=== PATIENT | female | born 2000 | race Two or more races ===

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

== ENCOUNTER 2020-06-12 17:48 | Emergency (ER) | payer MEDICAID ==
[2020-06-12 17:59] VITALS: BP 134/79; PULSE 97
--- NOTE | 2020-06-12 18:24 | EDM.PDOC ---
ED HPI GENERAL MEDICAL PROBLEM - General Chief Complaint: Gastrointestinal Problem Stated Complaint: CONSTIPATED Time Seen by Provider: 06/12/20 18:01 Source of Information: Reports: Patient, Old Records History Limitations: Reports: No Limitations - History of Present Illness INITIAL COMMENTS - FREE TEXT/NARRATIVE: Mildred is a 20-year-old female presenting to the ED for evaluation of probable constipation. Patient last had a bowel movement on Monday. She was seen on Monday in the clinic and was started on MiraLAX which she has been taking twice daily with 8 ounces of apple juice. It does appear that she may be under utilizing water as she drinks 1 or 2 bottles of water a day. She reports that 2 weeks ago she was having forceful bowel movement which likely resulted in an anal fissure. She was started on Anusol HC and lidocaine cream which after several days improved her symptoms. She had recurrence of more difficulty with stool on Monday when she was having a bowel movement and all of a sudden it became very very painful and she stopped. She has not stooled since then. She has not complained of nausea, decreased appetite, weight loss, and low pelvic pressure. She has taken stool softeners in addition to the MiraLAX without any improvement. On Monday when she was seen in the clinic she was also having increased pain with her hemorrhoids. On examination, there was no mention of anal fissure or external hemorrhoids but she did have significant tenderness of the rectum. There has been no blood with her stool. She denies any fever, chills, cough or shortness of breath. - Related Data Allergies Allergy/AdvReac Type Severity Reaction Status Date / Time amoxicillin Allergy Rash Verified 06/12/20 17:59 Home Meds: Home Meds Norgestimate-Ethinyl Estradiol [Trinessa Tablet] 1 each PO DAILY 05/22/14 [History] Past Medical History HEENT History: Reports: Otitis Media Psychiatric History: Reports: Anxiety - Past Surgical History HEENT Surgical History: Reports: Adenoidectomy, Myringotomy w Tube(s), Tonsillectomy Social & Family History - Caffeine Use Caffeine Use: Reports: Soda ED ROS GENERAL - Review of Systems Review Of Systems: See Below Constitutional: Reports: Decreased Appetite HEENT: Reports: No Symptoms Respiratory: Reports: No Symptoms Cardiovascular: Reports: No Symptoms Endocrine: Reports: No Symptoms GI/Abdominal: Reports: Abdominal Pain (Low abdomen and rectum), Anorexia, Constipation, Decreased Appetite, Nausea. Denies: Hematochezia, Melena, Vomiting : Reports: No Symptoms Musculoskeletal: Reports: No Symptoms Skin: Reports: No Symptoms Neurological: Reports: No Symptoms Psychiatric: Reports: No Symptoms Hematologic/Lymphatic: Reports: No Symptoms Immunologic: Reports: No Symptoms ED EXAM, GI/ABD - Physical Exam Exam: See Below Exam Limited By: No Limitations General Appearance: Alert, Mild Distress Eyes: Bilateral: EOMI Throat/Mouth: Normal Inspection, Normal Lips, Normal Teeth, Normal Gums, Normal Oropharynx, Normal Voice, No Airway Compromise Head: Atraumatic, Normocephalic Neck: Normal Inspection, Supple, Non-Tender, Full Range of Motion Respiratory/Chest: No Respiratory Distress, Lungs Clear, Normal Breath Sounds, No Accessory Muscle Use Cardiovascular: Normal Peripheral Pulses, Regular Rate, Rhythm, No Murmur GI/Abdominal Exam: Soft, No Distention, Tender (Mild tenderness to palpation), Abnormal Bowel Sounds (Scant bowel sounds) Rectal (Female) Exam: Rectal Fissure (Probable at 9:00 with the patient supine.), Tenderness. No: Hemorrhoids, Mass, Perirectal Abscess Back Exam: Normal Inspection, Full Range of Motion Extremities: Normal Inspection, Normal Range of Motion Neurological: Alert, Oriented, Normal Cognition, No Motor/Sensory Deficits Psychiatric: Normal Affect Skin Exam: Warm, Dry Lymphatic: No Adenopathy Course - Vital Signs Last Recorded V/S: Last Vital Signs Temp 38.1 C 06/12/20 18:08 Pulse 97 06/12/20 18:08 Resp 16 06/12/20 18:08 BP 134/79 06/12/20 18:08 Pulse Ox 97 06/12/20 18:08 - Orders/Labs/Meds Orders: Active Orders 24 hr Category Date Time Status Abdomen 1V Flat [CR] Stat Exams 06/12/20 18:01 Taken Meds: Medications Discontinued Medications Generic Name Dose Route Start Last Admin Trade Name Freq PRN Reason Stop Dose Admin Lidocaine/Prilocaine 1 gm 06/12/20 20:32 06/12/20 20:46 Emla Crm TOP 06/12/20 20:33 1 gm ONETIME ONE Administration - Radiology Interpretation Free Text/Narrative:: Abdomen 2 view x-ray reveals copious amount of colonic flatus with soft stool. There is a large bolus of hard stool in the sigmoid colon and rectum. No free air in the abdomen. No evidence for obstruction. - Re-Assessments/Exams Free Text/Narrative Re-Assessment/Exam: 06/12/20 22:08 patient has a large bolus of hard stool in the sigmoid colon and rectum. She received 2 tap water enemas and had some results but does have the ability to continue to push stool out, however, her rectum is too sore to attempt to do it. At this time, I think that we should send the patient home with continued use of MiraLAX and increase fluid intake. I think that additional enemas and local treatment will do nothing more than make her rectum more sore and her more apprehensive about moving her bowels. An alternative would be to have her take magnesium citrate which may cause more cramping and generalized abdominal pain but should make her move her bowels more expediently. Departure - Departure Time of Disposition: 22:09 Disposition: Home, Self-Care 01 Condition: Good Clinical Impression: Slow transit constipation, Rectal or anal pain, Anal fissure - Discharge Information *PRESCRIPTION DRUG MONITORING PROGRAM REVIEWED*: Not Applicable *COPY OF PRESCRIPTION DRUG MONITORING REPORT IN PATIENT ANA PAULA: Not Applicable Instructions: Constipation, Adult, Anal Fissure, Adult Referrals: Miguel Claudio MD [Primary Care Provider] - Forms: ED Department Discharge Care Plan Goals: I recommend continue with the MiraLAX twice daily with at least 100 ounces of water a day. You may try a strong stimulant laxative called magnesium citrate which is available [id number] which will help you move your bowels. It may cause abdominal cramping as it increases the contractility of the colon to move the stool. Continue to use the Anusol HC and EMLA cream to control your rectal pain. I would recommend sitz baths for the anal fissure as this will help keep things clean and allow for quicker healing. Sepsis Event Note (ED) - Focused Exam Vital Signs: Vital Signs Temp Pulse Resp BP Pulse Ox 06/12/20 18:08 38.1 C 97 16 134/79 97 06/12/20 17:58 38.1 C 97 16 134/79 97 - Problem List & Annotations (1) Anal fissure SNOMED Code(s): 64127254 Code(s): K60.2 - ANAL FISSURE, UNSPECIFIED Status: Acute Priority: Medium Current Visit: Yes (2) Rectal or anal pain SNOMED Code(s): 776792730 Code(s): K62.89 - OTHER SPECIFIED DISEASES OF ANUS AND RECTUM Status: Acute Priority: Medium Current Visit: Yes (3) Slow transit constipation SNOMED Code(s): 31006996 Code(s): K59.01 - SLOW TRANSIT CONSTIPATION Status: Acute Priority: High Current Visit: Yes - Problem List Review Problem List Initiated/Reviewed/Updated: Yes - My Orders Last 24 Hours: My Active Orders 06/12/20 18:01 Abdomen 1V Flat [CR] Stat - Assessment/Plan Last 24 Hours: My Active Orders 06/12/20 18:01 Abdomen 1V Flat [CR] Stat
[2020-06-12] MEDS ORDERED: Lidocaine/Prilocaine 2.5-2.5% Crm 5 GM Tube TOP ONE (20:32)
--- NOTE | 2020-06-15 09:17 | CR ---
Abdomen 1V Flat CLINICAL HISTORY: Abdominal pain, constipation FINDINGS: Small chest gas pattern is nonacute. There is gas and feces throughout the colon. There is a large bolus of stool in the rectum IMPRESSION: Moderate fecal retention. Possible fecal impaction in the rectum
== END 2020-06-12 22:35 | disposition home or self-care (01) ==
LOC: JP.ED 17:48
DX: K59.01 Slow transit constipation (principal); K60.2 Anal fissure, unspecified; Z88.0 Allergy status to penicillin
CPT/HCPCS: 74018; 99283; A9270

== ENCOUNTER 2022-04-21 23:51 | Inpatient (IN) | payer MEDICAID ==
[2022-04-22] MEDS ORDERED: Sodium Chloride 0.9% 10 ML Syringe FLUSH PRN ×3 (01:36→02:01)
[2022-04-22] MEDS ORDERED: Calcium Carbonate 500 MG Tab.Chew PO PRN (01:36)
[2022-04-22] MEDS ORDERED: Lidocaine 1% 50 ML MDV INJECT ONE (01:36)
[2022-04-22] MEDS ORDERED: Ondansetron 4 MG/2 ML SDV IV PRN (01:36)
[2022-04-22] MEDS ORDERED: hydrOXYzine HCl 25 MG Tab PO PRN (01:51)
[2022-04-22] MEDS ORDERED: diphenhydrAMINE 50 MG/ML SDV IVPUSH PRN ×2 (02:01)
[2022-04-22] MEDS ORDERED: ePHEDrine 50 MG/ML SDV IVPUSH PRN (02:01)
[2022-04-22] MEDS ORDERED: Naloxone 0.4 MG/ML SDV IVPUSH PRN (02:01)
[2022-04-22] MEDS ORDERED: Lactated Ringers 1,000 ML IV ONE (02:06)
[2022-04-22 02:53] LABS: CORONAVIRUS COVID-19 NAA POSITIVE (NEGATIVE)
[2022-04-22] MEDS ORDERED: Misoprostol 50 MCG (1/2 of 100 MCG) Tab PO ONE (03:30)
[2022-04-22] MEDS ORDERED: Ropivacaine 100 ML ONE ×2 (11:34→16:58)
[2022-04-22] MEDS ORDERED: Lactated Ringers 500 ML IV ONE (11:54)
[2022-04-22] MEDS: Lactated Ringers 1,000 ML IV SCH ×2 (12:30→16:35)
[2022-04-22] MEDS: Ropivacaine 200 MG in Premix Bag 1 BAG EPIDUR SCH (17:08)
[2022-04-22] MEDS ORDERED: Mineral Oil 10 ML Bottle TOP ONE (22:26)
[2022-04-22] MEDS ORDERED: Mineral Oil 10 ML Bottle ONE (22:28)
[2022-04-22] MEDS ORDERED: Mineral Oil 10 ML Bottle MUCMEM ONE (22:31)
[2022-04-23] MEDS ORDERED: Lidocaine 1% 50 ML MDV INJECT ONE (00:30)
[2022-04-23] MEDS: Lactated Ringers 1,000 ML IV SCH (00:48)
[2022-04-23] MEDS: Ropivacaine 200 MG in Premix Bag 1 BAG EPIDUR SCH (00:48)
[2022-04-23] MEDS ORDERED: Ondansetron 4 MG/2 ML SDV ONE (02:10)
[2022-04-23] MEDS ORDERED: Lactated Ringers 1,000 ML IV ONE (02:50)
[2022-04-23] MEDS ORDERED: Methylergonovine 0.2 MG/1 ML Amp IM ONE (03:15)
[2022-04-23] MEDS ORDERED: Methylergonovine 0.2 MG/1 ML Amp ONE (03:17)
[2022-04-23] MEDS ORDERED: Benzocaine 20% Top Spray 56 GM Bottle TOP PRN (04:54)
[2022-04-23] MEDS ORDERED: Hydrocortisone 2.5% Crm 30 GM Tube TOP PRN (04:54)
[2022-04-23] MEDS ORDERED: Witch Hazel Medicated Pads 100/Jar TOP PRN (04:54)
[2022-04-23] MEDS ORDERED: Lanolin 100% Cream 40 GM Tube TOP PRN (04:54)
[2022-04-23] MEDS ORDERED: Aluminum Hydroxide/Magnesium Hydroxide/Simethicone Susp 30 ML Cup PO PRN (04:54)
[2022-04-23] MEDS ORDERED: Bisacodyl 10 MG Supp RECTAL PRN (04:54)
[2022-04-23] MEDS ORDERED: Ibuprofen 600 MG Tab PO PRN (05:24)
[2022-04-23] MEDS ORDERED: Acetaminophen 325 MG Tab PO PRN (05:24)
[2022-04-23] MEDS ORDERED: Acetaminophen 325 MG Tab, 50 Tab Bulk Bottle PO PRN (07:14)
[2022-04-23] MEDS ORDERED: Ibuprofen 200 MG Tab, 24 Tab Bulk Bottle PO PRN (12:00)
[2022-04-23] MEDS: Prenatal Multivitamin with Calcium/Folic Acid/Iron Tab PO SCH (12:06)
[2022-04-23] MEDS: Docusate Sodium 100 MG Cap PO PRN (18:26)
[2022-04-24] MEDS: Docusate Sodium 100 MG Cap PO PRN (09:55)
[2022-04-24] MEDS: Prenatal Multivitamin with Calcium/Folic Acid/Iron Tab PO SCH (09:55)
[2022-04-24] MEDS ORDERED: Acetaminophen 325 MG Tab, 50 Tab Bulk Bottle PO PRN (10:47)
[2022-04-24] MEDS: Polyethylene Glycol 3350 Powder 17 GM Packet PO SCH (13:48)
[2022-04-25] MEDS: Polyethylene Glycol 3350 Powder 17 GM Packet PO SCH (09:31)
[2022-04-25] MEDS: Prenatal Multivitamin with Calcium/Folic Acid/Iron Tab PO SCH (09:31)
[2022-04-25 11:35] VITALS: BP 120/66; PULSE 70
== END 2022-04-25 16:57 | disposition home or self-care (01) | DRG 805 ==
LOC: JP.OB 23:51 → JP.OBCHECK 23:51 → JP.OB 04-22 01:37 → OBSVTOIN 04-22 02:58 → JP.MS 04-23 11:00
PROVIDERS: ADMIT Student in an Organized Health Care Education/Training Program; ATTEND Student in an Organized Health Care Education/Training Program
PROC: 10E0XZZ Delivery of Products of Conception, External Approach (ICD-10-PCS; principal; 2022-04-23)
PROC: 0KQM0ZZ Repair Perineum Muscle, Open Approach (ICD-10-PCS; 2022-04-23)
PROC: 0UQMXZZ Repair Vulva, External Approach (ICD-10-PCS; 2022-04-23)
PROC: 3E0P7VZ Introduction of Hormone into Female Reproductive, Via Natural or Artificial Opening (ICD-10-PCS; 2022-04-23)
PROC: 3E0R3BZ Introduction of Anesthetic Agent into Spinal Canal, Percutaneous Approach (ICD-10-PCS; 2022-04-23)
PROC: 00HU33Z Insertion of Infusion Device into Spinal Canal, Percutaneous Approach (ICD-10-PCS; 2022-04-23)
DX: O42.12 Full-term premature rupture of membranes, onset of labor more than 24 hours following rupture (principal); U07.1 COVID-19; Z37.0 Single live birth; O98.52 Other viral diseases complicating childbirth; O71.7 Obstetric hematoma of pelvis; Z3A.39 39 weeks gestation of pregnancy; O70.1 Second degree perineal laceration during delivery; O99.03 Anemia complicating the puerperium; D64.9 Anemia, unspecified; O99.62 Diseases of the digestive system complicating childbirth; K59.00 Constipation, unspecified; Z88.0 Allergy status to penicillin
CPT/HCPCS: 0241U; 36415; 51702; 81001; 84112; 85018; 85025; 99211; A9270-GY; J2210; J2405; J2590; J2795; J7120; U0002